=== PATIENT | male | born 1960 ===

== ENCOUNTER 2020-11-29 16:16 | Outpatient (REF) | payer BC, SELFPAY | END 2020-11-29 16:17 | disposition home or self-care (01) | LOC: HO.SCI 16:16 | DX: Z13.89 Encounter for screening for other disorder (principal) ==

== ENCOUNTER → 2021-01-04 20:27 | Outpatient (REF) | payer BC, SELFPAY | LOC: HO.SL 20:27 | PROVIDERS: Visit Provider Internal Medicine Cardiovascular Disease | DX: G47.33 Obstructive sleep apnea (adult) (pediatric) (principal); I10 Essential (primary) hypertension | CPT/HCPCS: 95811 ==